=== PATIENT | female | born 1955 | race Caucasian/White ===

== ENCOUNTER 2018-06-28 11:21 | Inpatient (IN) | payer BC ==
[2018-06-28] MEDS ORDERED: Thiamine IV 100 MG, Folic Acid IV* 1 MG, Multiple Vitamin IV ADULT* 10 ML in NS 0.9% 10... IV ONE (11:33)
[2018-06-28] MEDS ORDERED: Ondansetron INJ* 2 MG/ML VIAL IV ONE (11:33)
--- NOTE | 2018-06-28 11:48 | ED ---
Substance Abuse/Use - HPI Summary HPI Summary: This pt is a 62 y/o female presenting to [facility] via EMS for not feeling well after drinking alcohol 2 days ago. Pt states she was binge drinking 2 days ago, notes she drank beers that were double strength. She denies drinking alcohol every day. Today she reports nausea, vomiting, abd pain, lightheadedness, chest pain, palpitations, headache, some confusion. She notes she used to be an alcoholic, last drink was 2 weeks ago prior to drinking 2 days ago. Denies tobacco use. Pt reports she must have hx of liver cirrhosis, although she is not sure. She sees her doctor every year. - History Of Current Complaint Stated Complaint: ETOH Time Seen by Provider: 06/28/18 11:27 Hx Obtained From: Patient Onset/Duration of Drug/ETOH Abuse: Days Ingestion History: Type/Name Of Drug - Alcohol, Amount Ingested - binge use Overdose Characteristics: Oral Timing Of Abuse: Binge Use Severity Currently: Moderate Character: Stuporous Aggravating Factor(s): Nothing Alleviating Factor(s): Nothing Associated Signs And Symptoms: Confused, Palpitations, Chest Pain, Nausea, Vomiting, Intentional Ingestion, Other: - POS: abd pain, headache, lightheadedness - Allergies/Home Medications Allergies/Adverse Reactions: Allergies Allergy/AdvReac Type Severity Reaction Status Date / Time No Known Allergies Allergy Verified 06/28/18 11:37 Home Medications: Home Medications Zolpidem TAB* [Ambien TAB*] 5 mg PO BEDTIME PRN 06/28/18 [History Confirmed ] PMH/Surg Hx/FS Hx/Imm Hx Musculoskeletal History: Denies: Hx Rheumatoid Arthritis, Hx Osteoporosis Psychiatric History: Reports: Hx Substance Abuse - Cancer History Hx Chemotherapy: Yes - BREAST Hx Radiation Therapy: Yes - BREAST Infectious Disease History: No Infectious Disease History: Denies: Traveled Outside the [place] in Last 30 Days - Family History Family History: brothers and sisters with venous stasis disease. - Social History Substance Use Type: Reports: None Smoking Status (MU): Never Smoked Tobacco Review of Systems Negative: Fever, Chills Positive: Chest Pain Positive: Shortness Of Breath Positive: Abdominal Pain, Vomiting, Nausea Neurological: Other - POS: confusion Positive: Headache All Other Systems Reviewed And Are Negative: Yes Physical Exam - Summary Physical Exam Summary: VITAL SIGNS: Reviewed. GENERAL: Patient is a well-developed and nourished female who is lying comfortable in the stretcher. Patient is not in any acute respiratory distress. I can smell alcohol in her breath. HEAD AND FACE: No signs of trauma. No ecchymosis, hematomas or skull depressions. No sinus tenderness. EYES: PERRLA, EOMI x 2, No injected conjunctiva, no nystagmus. EARS: Hearing grossly intact. Ear canals and tympanic membranes are within normal limits. MOUTH: Oropharynx within normal limits. NECK: Supple, trachea is midline, no adenopathy, no JVD, no carotid bruit, no c- spine tenderness, neck with full ROM. CHEST: Symmetric, no tenderness at palpation LUNGS: Clear to auscultation bilaterally. No wheezing or crackles. CVS: Regular rate and rhythm, S1 and S2 present, no murmurs or gallops appreciated. ABDOMEN: Soft, non-tender. No signs of distention. No rebound, no guarding, and no masses palpated. Bowel sounds are normal. EXTREMITIES: FROM in all major joints, no edema, no cyanosis or clubbing. NEURO: Alert and oriented x 3. No acute neurological deficits. Speech is normal and follows commands. Pt is slow to respond. SKIN: Dry and warm. Some jaundice. Triage Information Reviewed: Yes Vital Signs On Initial Exam: Initial Vitals Temp Pulse Resp BP Pulse Ox 97.7 F 82 16 122/99 99 06/28/18 11:33 06/28/18 11:33 06/28/18 11:33 06/28/18 11:33 06/28/18 11:33 Vital Signs Reviewed: Yes Diagnostics - Vital Signs Vital Signs Temp Pulse Resp BP Pulse Ox 06/28/18 11:33 97.7 F 82 16 122/99 99 - Laboratory Result Diagrams: 06/28/18 12:01 06/29/18 05:51 Lab Statement: Any lab studies that have been ordered have been reviewed, and results considered in the medical decision making process. - Radiology Chest XR Radiology Interpretation Completed By: Radiologist Summary of Radiographic Findings: IMPRESSION: Mild pulmonary vascular congestion and interstitial edema. Dr. Arias has reviewed this report. - CT Brain CT CT Interpretation Completed By: Radiologist Summary of CT Findings: IMPRESSION: No evidence for acute intracranial abnormality. Dr. Arias has reviewed this report. - EKG 11:41 Cardiac Rate: NL - at 90 bpm EKG Rhythm: Sinus Rhythm Summary of EKG Findings: No ST elevations. Normal axis. Re-Evaluation - Re-Evaluation First Eval Re-Evaluation Time: 12:05 Change: Worse Comment: Pt had an approx 1 minute seizure. She was given 2 mg of Ativan. Course/Dx - Course Assessment/Plan: This pt is a 62 y/o female presenting to [facility] via EMS for not feeling well after drinking alcohol 2 days ago. Pt states she drank beers 2 days ago that were double strength. She notes she does not drink alcohol every day. Today she reports nausea, vomiting, abd pain, lightheadedness, chest pain, palpitations, headache, some confusion. She notes she used to be an alcoholic, last drink was 2 weeks ago. Denies tobacco use. Pt reports she must have hx of liver cirrhosis, although she is not sure. She sees her doctor every year. In the ER course the patient was placed in a director of cardiac rehabilitation, seizure precautions were placed, the patient was started on IV fluids, I also ordered banana bag since the patients symptoms began alcoholic. At approximately 12 PM the patient developed a clonic tonic seizure that lasted for approximately a minute. We did some suction and the patient was given Ativan and we also placed the patient on oxygen. At this time the patient is resting comfortably. We will therefore wait for the blood test results to return. Blood work without any significant abnormality except for sodium of 109, potassium 3.4, chloride 77, carbon dioxide 19 and anion gap is 13. Glucose 119, magnesium 1.4 , total bili is 1.3. Head CT impression: No evidence for acute intracranial abnormality. In the ED course the patient was given another dose of Ativan since the patient was not laying still before the head CT. The patient was also started on magnesium and potassium IV. The sodium level is 109 and the patient is symptomatic with a seizure and altered mental status therefore the patient was started on hypertonic saline 3% about 25 cc/h. Dr. Richmond, synthetic soil blocks pulper, agrees with the infusion rate and the hypertonic saline. She also accepted the patient for admission to his services to the ICU for further workup and management. The patient is critical however she is stable at this time. The patient is maintaining her airway therefore no need for intubation at this time. - Diagnoses Differential Diagnosis/HQI/PQRI: Positive: Alcohol Withdrawal, Delirium Tremens Provider Diagnoses: Hyponatremia, Seizure, Alcohol abuse, Hypomagnesemia, Hypokalemia - Physician Notifications Discussed Care Of Patient With: Jesus Manuel Richmond - synthetic soil blocks pulper Time Discussed With Above Provider: 12:45 Instructed by Provider To: Admit As Inpatient Discharge - Sign-Out/Discharge Documenting (check all that apply): Patient Departure - Admit to ICU All imaging exams completed and their final reports reviewed: Yes - Discharge Plan Condition: Stable Disposition: ADMITTED TO [facility] - Billing Disposition and Condition Condition: STABLE Disposition: Admitted to [facility] - Attestation Statements Document Initiated by Que: Yes Documenting Scribe: Sheyla Mclean Provider For Whom Que is Documenting (Include Credential): Jone Arias MD Scribe Attestation: Sheyla Ramos scribed for Jone Arias MD on 06/29/18 at 0717. Scribe Documentation Reviewed: Yes Provider Attestation: The documentation as recorded by the Sheyla mcmillan accurately reflects the service I personally performed and the decisions made by Jone morgan MD Status of Scribe Document: Viewed
[2018-06-28] MEDS ORDERED: LORazepam INJ* 2 MG/ML 1 ML VIAL IV PUSH ONE ×2 (12:05→12:50)
[2018-06-28] MEDS ORDERED: LORazepam INJ* 2 MG/ML 1 ML VIAL ONE ×3 (12:05→13:49)
[2018-06-28 12:26] LABS: ABS Basophils 0 10^3/ul (0-0.2); ABS Eosinophils 0 10^3/ul (0-0.6); ABS Lymphocytes 0.6 10^3/ul (1.0-4.8); ABS Monocytes 0.4 10^3/ul (0-0.8); ABS Neutrophils 5.9 10^3/ul (1.5-7.7); ABS Nucleated RBC 0 10^3/ul; Eosinophil % 0.1 %; Hematocrit 35 % (35-47); Hemoglobin 12.3 g/dl (12.0-16.0); Lymphocyte % 8.5 %; Mean Corpuscular HGB Conc 35 g/dl (31-36); Mean Corpuscular Hemoglobin 31 pg (27-31); Mean Corpuscular Volume 87 fL (80-97); Mean Platelet Volume 8.5 fL (7.4-10.4); Nucleated Red Blood Cells % 0; Platelet Count 247 10^3/ul (150-450); Red Blood Count 3.99 10^6/ul (4.00-5.40); Red Cell Distribution Width 13 % (10.5-15)
[2018-06-28] MEDS ORDERED: NS 0.9% 1000 ML** 1,000 ML ONE (12:32)
[2018-06-28] MEDS ORDERED: Folic Acid IV* 50 MG/10 ML VIAL ONE (12:32)
[2018-06-28] MEDS ORDERED: Multiple Vitamin IV ADULT* 10 ML VIAL ONE (12:32)
[2018-06-28 12:37] LABS: Activated Partial Thrombo Time 26.8 seconds (26.0-36.3); INR 0.88 (0.77-1.02)
[2018-06-28 12:41] LABS: ALT 21 U/L (7-52); AST 29 U/L (13-39); Albumin 4.3 g/dL (3.2-5.2); Albumin/Globulin Ratio 2.2 (1-3); Alkaline Phosphatase 54 U/L (34-104); Amylase 35 U/L (29-103); Blood Urea Nitrogen 9 mg/dL (6-24); C Reactive Protein 4.28 mg/L (<8.01); CO2 Carbon Dioxide 19 mmol/L (22-32); Calcium 8.8 mg/dL (8.6-10.3); Chloride 77 mmol/L (101-111); Creatine Kinase 218 U/L (10-223); EGFR African American 141.4 (>60); EGFR Non-African American 116.9 (>60); Glucose 119 mg/dL (70-100); Magnesium 1.4 mg/dL (1.9-2.7); Potassium 3.4 mmol/L (3.5-5.0); Total Protein 6.3 g/dL (6.4-8.9)
[2018-06-28 12:44] LABS: Anion Gap 13 mmol/L (2-11); Sodium 109 mmol/L (135-145)
[2018-06-28] MEDS ORDERED: Magnesium Sulfate 2 GM IV* 2 GM/50 ML BAG IVPB ONE (12:44)
[2018-06-28] MEDS ORDERED: Sodium Chloride 3% HYPERTONIC* 500 ML IVPB ONE (12:47)
[2018-06-28 12:57] LABS: Acetaminophen < 15 mcg/mL; Alcohol < 10 mg/dL (<10)
[2018-06-28] MEDS ORDERED: NS 0.9% IV ONE ×3 (13:04→13:05)
[2018-06-28] MEDS ORDERED: SODIUM CHLORIDE 23.4% IV ONE ×3 (13:04→13:05)
[2018-06-28] MEDS ORDERED: Sodium Chloride 3% HYPERTONIC* 500 ML IV ONE ×2 (13:07)
[2018-06-28 13:42] LABS: BNP 390 pg/mL (<=100)
[2018-06-28] MEDS: KCL 10 MEQ/50 ML IVPREMIX* 10 MEQ/50 ML BAG IV SCH ×2 (14:45→16:25)
[2018-06-28] MEDS ORDERED: NS 0.9% 1000 ML** 1,000 ML IV SCH (18:04)
[2018-06-28] MEDS ORDERED: LORazepam INJ* 2 MG/ML 1 ML VIAL IV PUSH PRN (19:33)
--- NOTE | 2018-06-28 19:58 | HP ---
History of Present Illness - History of Present Illness Reason for Visit: symptomatic hyponatremia History of Present Illness: Patient is post-ictal. Patient partner was in the room earlier but not available during the evaluation History was obtained from patient's partner and chart-review 62 y/o female with history of chronic alcohol use presenting to [facility] via EMS for not feeling well after an alcohol binge 2 days ago. While in the ED, patient suddenly developed a clonic tonic seizure that lasted for approximately a minute. This episode was treated with ativan with resolution of seizure. Patient was noted to have a Na+ of 109 and started on 3% Saline that was discontinued when the sodium was 114. She maintained her airway and hemodynamics. Further workup including CTH was unrevealing. Patient now responds to her her name but is withdrawn and won't answer my questions - Past Medical History Hepatobiliary: Cirrhosis Review of Systems - Review of Systems Constitutional: Positive: Chills, Weakness, Malaise. Negative: Fever, Sweats Respiratory: Negative: Shortness of Breath Cardiovascular: Negative: Chest Pain, Palpitations Skin: Negative: Rash, Lesions Neurological: Positive: Weakness, Numbness, Incoordination, Confusion, Seizures - Medications/Allergies Allergies/Adverse Reactions: Allergies Allergy/AdvReac Type Severity Reaction Status Date / Time No Known Allergies Allergy Verified 06/28/18 11:37 Medications: Current Medications Sodium Chloride (Ns 0.9% 1000 Ml*) 1,000 mls @ 100 mls/hr IV PER RATE WYATT Dexmedetomidine HCl 400 mcg/ (Sodium Chloride) 100 mls @ 2.71 mls/hr IVPB Q24H WYATT; Protocol Last Admin: 06/28/18 19:48 Dose: 2.71 mls/hr Lorazepam (Ativan Inj*) 0 mg IV PUSH Q2H PRN; Protocol PRN Reason: ANXIETY Exam - Exam Vital Signs: Vital Signs (72 hours) 06/28/18 06/28/18 06/28/18 11:33 11:36 11:52 Temperature 97.7 F Pulse Rate 82 Respiratory 16 11 29 Rate Blood Pressure 122/99 112/81 (mmHg) O2 Sat by Pulse 99 Oximetry 06/28/18 06/28/18 06/28/18 12:00 12:17 12:21 Temperature Pulse Rate 81 90 94 Respiratory 29 22 20 Rate Blood Pressure 131/83 128/81 (mmHg) O2 Sat by Pulse 99 96 95 Oximetry 06/28/18 06/28/18 06/28/18 12:30 12:50 13:00 Temperature Pulse Rate Respiratory 18 24 19 Rate Blood Pressure (mmHg) O2 Sat by Pulse Oximetry 06/28/18 06/28/18 06/28/18 13:56 14:01 14:03 Temperature 98.1 F Pulse Rate 90 92 Respiratory 16 19 21 Rate Blood Pressure 119/78 213/185 (mmHg) O2 Sat by Pulse 100 97 Oximetry 06/28/18 06/28/18 06/28/18 14:05 14:16 14:27 Temperature 98.6 F Pulse Rate 91 80 80 Respiratory 17 18 17 Rate Blood Pressure 106/60 106/60 113/68 (mmHg) O2 Sat by Pulse 99 99 98 Oximetry 06/28/18 06/28/18 06/28/18 14:30 14:45 15:00 Temperature Pulse Rate 77 74 105 Respiratory 17 17 15 Rate Blood Pressure 96/65 100/67 (mmHg) O2 Sat by Pulse 99 100 100 Oximetry 06/28/18 06/28/18 06/28/18 15:01 15:15 15:31 Temperature Pulse Rate 102 101 86 Respiratory 24 29 20 Rate Blood Pressure 99/80 103/87 119/78 (mmHg) O2 Sat by Pulse 100 100 100 Oximetry 06/28/18 06/28/18 06/28/18 15:38 15:45 16:00 Temperature 98 F Pulse Rate 73 87 Respiratory 16 21 Rate Blood Pressure 108/59 103/79 (mmHg) O2 Sat by Pulse 99 98 Oximetry 06/28/18 06/28/18 06/28/18 16:16 17:00 17:01 Temperature Pulse Rate 104 92 108 Respiratory 16 27 25 Rate Blood Pressure 116/90 118/100 (mmHg) O2 Sat by Pulse 99 98 99 Oximetry 06/28/18 06/28/18 06/28/18 18:00 19:00 19:01 Temperature Pulse Rate 73 75 80 Respiratory 15 21 24 Rate Blood Pressure 115/70 126/70 (mmHg) O2 Sat by Pulse 99 98 97 Oximetry 06/28/18 19:07 Temperature Pulse Rate Respiratory 22 Rate Blood Pressure (mmHg) O2 Sat by Pulse Oximetry General: Alert, No acute distress HEENT: Atraumatic, Mucous membr. moist/pink Lungs: Clear to auscultation Cardiovascular: Regular rate, Normal S1, Normal S2 Abdomen: Normal bowel sounds, Soft, No tenderness Extremities: No clubbing, No cyanosis, No edema Skin: No rashes, No breakdown Neurological: Other - non focal Assessment/Plan - Assessment/Plan Assessment: 62 F with hx/o chronic alcohol abuse admitted to the ICU for symptomatic hyponatremia with acute seizure Symptomatic hyponatremia Acute new seizure due to ETOH withdrawal vs acute hyponatremia ETOH abuse Plan: -seizure and aspiration precautions - CIWA protocol - banana bag -Na+ q 3hours. Goal to increase no more than 120-122 by 6pm tomorrow. Discontinued HS(3%) at 1600. Repeat Na 4p and 6p stable at 114. Currently on NS 50cc/h. If Na+ >1Meq by 9 pm will hold NS vs start attempts to lower Na+ -replace electrolytes per protocol- Goal K+ >3.5, Mg >2 Code status full prognosis: guarded Critical care time: 65 mins
[2018-06-28] MEDS ORDERED: Dexmedetomidine* 400 MCG in NS 0.9% 100 ML* 96 ML IVPB SCH (20:00)
[2018-06-28] MEDS: Heparin VIAL(*) 5000 UNITS/ML VIAL (FIVE THOUSAND) SUBCUT SCH (20:58)
[2018-06-29] MEDS ORDERED: Sodium Chloride 3% HYPERTONIC* 500 ML IVPB ONE (01:00)
[2018-06-29] MEDS ORDERED: NS 0.9% 1000 ML** 1,000 ML IV SCH (03:00)
[2018-06-29] MEDS: Heparin VIAL(*) 5000 UNITS/ML VIAL (FIVE THOUSAND) SUBCUT SCH ×3 (05:44→21:30)
[2018-06-29 06:14] LABS: Calcium 7.6 mg/dL (8.6-10.3); EGFR African American 195.7 (>60); EGFR Non-African American 161.7 (>60); Potassium 3.2 mmol/L (3.5-5.0)
[2018-06-29] MEDS ORDERED: Acetaminophen TAB* 325 MG ONE (06:23)
[2018-06-29] MEDS: Acetaminophen TAB* 325 MG PO PRN ×2 (06:25→18:15)
[2018-06-29] MEDS ORDERED: KCL 10 MEQ/50 ML IVPREMIX* 10 MEQ/50 ML BAG IV ONE (08:34)
[2018-06-29] MEDS ORDERED: Ibuprofen TAB* 600 MG PO ONE (08:42)
--- NOTE | 2018-06-29 08:53 | PN ---
Date of Service: 06/29/18 Critical Care Services: 62F with h/o etoh abuse presents with encephalopathy 2/2 seizure from hyponatremia. 06/29: discussed with patient. she states she doesnt drink. Vital Signs: Temp Pulse Resp BP SpO2 FiO2 99 F 75 16 96/53 95 06/29/18 07:21 06/29/18 07:30 06/29/18 08:00 06/29/18 07:30 06/29/18 07:30 Physical Exam: Gen - nad heent - ncat, eomi, perrl neck - no jvd cv - s1/s2, no murmur lungs - cta, no wheeze abd - soft, nt ext - no cce neuro - non-focal Fluid Balance (Past 24 Hours): I= O= Net Intake & Output 06/27/18 06/28/18 06/29/18 06/30/18 06:59 06:59 06:59 06:59 Intake Total 1871.9 40 Output Total 1600 Balance 271.9 40 Weight 55.471 kg Intake: IV Fluids 1566 Banana Bag 980 KCl 100 Mag 50 NS (0.9%) 436 IVPB 296 Medicated IV 9.9 CC - Dexmedetomidine/ 9.9 Precedex Oral 40 Output: Urine 1600 Other: Estimated Void Medium # Voids 1 Labs: Laboratory Results - last 24 hr 06/28/18 06/28/18 06/28/18 12:01 12:01 12:01 WBC 7.0 RBC 3.99 L Hgb 12.3 Hct 35 MCV 87 MCH 31 MCHC 35 RDW 13 Plt Count 247 MPV 8.5 Neut % (Auto) 85.2 Lymph % (Auto) 8.5 [place] % (Auto) 6.1 Eos % (Auto) 0.1 Baso % (Auto) 0.1 Absolute Neuts (auto) 5.9 Absolute Lymphs (auto) 0.6 L Absolute Monos (auto) 0.4 Absolute Eos (auto) 0 Absolute Basos (auto) 0 Absolute Nucleated RBC 0 Nucleated RBC % 0 INR (Anticoag Therapy) 0.88 APTT 26.8 Sodium 109 L* Potassium 3.4 L Chloride 77 L Carbon Dioxide 19 L Anion Gap 13 H BUN 9 Creatinine 0.53 Est GFR ( Amer) 141.4 Est GFR (Non-Af Amer) 116.9 BUN/Creatinine Ratio 17.0 Glucose 119 H Lactic Acid Calcium 8.8 Magnesium 1.4 L Total Bilirubin 1.30 H AST 29 ALT 21 Alkaline Phosphatase 54 Ammonia Total Creatine Kinase 218 C-Reactive Protein 4.28 B-Natriuretic Peptide Total Protein 6.3 L Albumin 4.3 Globulin 2.0 Albumin/Globulin Ratio 2.2 Amylase 35 Lipase < 10 L Acetaminophen Serum Alcohol Blood Type Antibody Screen 06/28/18 06/28/18 06/28/18 12:01 12:01 12:01 WBC RBC Hgb Hct MCV MCH MCHC RDW Plt Count MPV Neut % (Auto) Lymph % (Auto) [place] % (Auto) Eos % (Auto) Baso % (Auto) Absolute Neuts (auto) Absolute Lymphs (auto) Absolute Monos (auto) Absolute Eos (auto) Absolute Basos (auto) Absolute Nucleated RBC Nucleated RBC % INR (Anticoag Therapy) APTT Sodium Potassium Chloride Carbon Dioxide Anion Gap BUN Creatinine Est GFR ( Amer) Est GFR (Non-Af Amer) BUN/Creatinine Ratio Glucose Lactic Acid 2.0 Calcium Magnesium Total Bilirubin AST ALT Alkaline Phosphatase Ammonia 64 H Total Creatine Kinase C-Reactive Protein B-Natriuretic Peptide 390 H Total Protein Albumin Globulin Albumin/Globulin Ratio Amylase Lipase Acetaminophen Serum Alcohol Blood Type A Positive Antibody Screen Negative 06/28/18 06/28/18 06/28/18 12:01 13:10 14:24 WBC RBC Hgb Hct MCV MCH MCHC RDW Plt Count MPV Neut % (Auto) Lymph % (Auto) [place] % (Auto) Eos % (Auto) Baso % (Auto) Absolute Neuts (auto) Absolute Lymphs (auto) Absolute Monos (auto) Absolute Eos (auto) Absolute Basos (auto) Absolute Nucleated RBC Nucleated RBC % INR (Anticoag Therapy) APTT Sodium 113 L* 109 L* Potassium Chloride Carbon Dioxide Anion Gap BUN Creatinine Est GFR ( Amer) Est GFR (Non-Af Amer) BUN/Creatinine Ratio Glucose Lactic Acid Calcium Magnesium Total Bilirubin AST ALT Alkaline Phosphatase Ammonia Total Creatine Kinase C-Reactive Protein B-Natriuretic Peptide Total Protein Albumin Globulin Albumin/Globulin Ratio Amylase Lipase Acetaminophen < 15 Serum Alcohol < 10 Blood Type Antibody Screen 06/28/18 06/28/18 06/28/18 16:15 17:41 18:02 WBC RBC Hgb Hct MCV MCH MCHC RDW Plt Count MPV Neut % (Auto) Lymph % (Auto) [place] % (Auto) Eos % (Auto) Baso % (Auto) Absolute Neuts (auto) Absolute Lymphs (auto) Absolute Monos (auto) Absolute Eos (auto) Absolute Basos (auto) Absolute Nucleated RBC Nucleated RBC % INR (Anticoag Therapy) APTT Sodium 114 L* 114 L* Potassium Chloride Carbon Dioxide Anion Gap BUN Creatinine Est GFR ( Amer) Est GFR (Non-Af Amer) BUN/Creatinine Ratio Glucose Lactic Acid 1.4 Calcium Magnesium Total Bilirubin AST ALT Alkaline Phosphatase Ammonia Total Creatine Kinase C-Reactive Protein B-Natriuretic Peptide Total Protein Albumin Globulin Albumin/Globulin Ratio Amylase Lipase Acetaminophen Serum Alcohol Blood Type Antibody Screen 06/28/18 06/28/18 06/29/18 20:27 23:18 02:19 WBC RBC Hgb Hct MCV MCH MCHC RDW Plt Count MPV Neut % (Auto) Lymph % (Auto) [place] % (Auto) Eos % (Auto) Baso % (Auto) Absolute Neuts (auto) Absolute Lymphs (auto) Absolute Monos (auto) Absolute Eos (auto) Absolute Basos (auto) Absolute Nucleated RBC Nucleated RBC % INR (Anticoag Therapy) APTT Sodium 113 L* 111 L* 114 L* Potassium Chloride Carbon Dioxide Anion Gap BUN Creatinine Est GFR ( Amer) Est GFR (Non-Af Amer) BUN/Creatinine Ratio Glucose Lactic Acid Calcium Magnesium Total Bilirubin AST ALT Alkaline Phosphatase Ammonia Total Creatine Kinase C-Reactive Protein B-Natriuretic Peptide Total Protein Albumin Globulin Albumin/Globulin Ratio Amylase Lipase Acetaminophen Serum Alcohol Blood Type Antibody Screen 06/29/18 05:51 WBC RBC Hgb Hct MCV MCH MCHC RDW Plt Count MPV Neut % (Auto) Lymph % (Auto) [place] % (Auto) Eos % (Auto) Baso % (Auto) Absolute Neuts (auto) Absolute Lymphs (auto) Absolute Monos (auto) Absolute Eos (auto) Absolute Basos (auto) Absolute Nucleated RBC Nucleated RBC % INR (Anticoag Therapy) APTT Sodium 115 L* Potassium 3.2 L Chloride 87 L Carbon Dioxide 21 L Anion Gap 7 BUN 6 Creatinine 0.40 L Est GFR ( Amer) 195.7 Est GFR (Non-Af Amer) 161.7 BUN/Creatinine Ratio 15.0 Glucose 91 Lactic Acid Calcium 7.6 L Magnesium Total Bilirubin AST ALT Alkaline Phosphatase Ammonia Total Creatine Kinase C-Reactive Protein B-Natriuretic Peptide Total Protein Albumin Globulin Albumin/Globulin Ratio Amylase Lipase Acetaminophen Serum Alcohol Blood Type Antibody Screen Studies: CXR 06/28 IMPRESSION: #. Mild pulmonary vascular congestion and interstitial edema. CT head 06/28 IMPRESSION: NO EVIDENCE FOR ACUTE INTRACRANIAL ABNORMALITY. Impression: 62F with etoh abuse? presents with ecephalopathy 2/2 seizure/hyponatremia Plan: Neuro - encephalopathy/etoh abuse? - 2/2 seizure - improved - ativan prn withdrawal - fall/seizure precautions - pt/sw eval CV - mild elevation in bnp - no evidence of chf - tte as outpatient pulm - oxygenating well on room air id - no evidence of infection gi - advance diet as tolerated - repeat lft/ammonia at noon - thiamine/folate/mvi renal - hyponatremia - 2/2 beer potomania? - check urine lytes - iv hydration - serial bmp - replete k/phos heme - monitor cbc endo - check tsh/cortisol lines - place mid line ppx - gi/dvt full code Critical Care Time: 55 mins
[2018-06-29] MEDS ORDERED: Thiamine IV 100 MG, Folic Acid IV* 1 MG, Multiple Vitamin IV ADULT* 10 ML in NS 0.9% 10... IV ONE (09:00)
[2018-06-29] MEDS ORDERED: LORazepam INJ* 2 MG/ML 1 ML VIAL IV PUSH SCH (09:00)
[2018-06-29] MEDS: Potassium Chlor TAB* 20 MEQ TAB.ER PO SCH ×3 (09:52→18:14)
[2018-06-29] MEDS: Multivitamins/Minerals TAB PO SCH (09:52)
[2018-06-29] MEDS: Thiamine TAB* 100 MG TAB PO SCH (09:53)
[2018-06-29] MEDS: Folic Acid TAB* 1 MG PO SCH (09:53)
[2018-06-29 13:27] LABS: Urine Appearance Clear; Urine Bilirubin Negative (Negative); Urine Blood Negative (Negative); Urine Color Straw; Urine Glucose Negative (Negative); Urine Ketones Negative (Negative); Urine Nitrite Negative (Negative); Urine Protein Negative (Negative); Urine Specific Gravity 1.002 (1.010-1.030); Urine Urobilinogen Negative (Negative)
[2018-06-29 14:15] LABS: Albumin 3.9 g/dL (3.2-5.2); Albumin/Globulin Ratio 2.1 (1-3); Calcium 8.4 mg/dL (8.6-10.3); EGFR African American 162.5 (>60); EGFR Non-African American 134.3 (>60); Globulin 1.9 g/dL (2-4); Indirect Bilirubin 0.7 mg/dL (0.3-1.0); Magnesium 1.8 mg/dL (1.9-2.7); Phosphorus 1.7 mg/dL (2.5-5.0); Total Bilirubin 0.8 mg/dL (0.2-1.0); Total Protein 5.8 g/dL (6.4-8.9)
[2018-06-29 14:27] LABS: TSH (Thyroid Stimulating Horm) 2.13 mcIU/mL (0.34-5.60)
[2018-06-29] MEDS ORDERED: Sodium Phosphate INJ* 15 MMOLE in NS 0.9% 250 ML* 250 ML IVPB ONE (14:43)
[2018-06-29] MEDS ORDERED: Magnesium Sulfate 1 GM IV* 1 GM/100 ML BAG IV ONE (14:43)
[2018-06-29 18:29] LABS: BUN/Creatinine Ratio 12.7 (8-20); Calcium 8.7 mg/dL (8.6-10.3); EGFR African American 135.5 (>60); Magnesium 2.4 mg/dL (1.9-2.7); Phosphorus 1.8 mg/dL (2.5-5.0); Potassium 3.9 mmol/L (3.5-5.0)
[2018-06-30 00:37] LABS: BUN/Creatinine Ratio 23.2 (8-20); Calcium 8.4 mg/dL (8.6-10.3); EGFR African American 132.7 (>60); EGFR Non-African American 109.7 (>60); Magnesium 2.2 mg/dL (1.9-2.7); Phosphorus 1.9 mg/dL (2.5-5.0); Potassium 4.3 mmol/L (3.5-5.0)
[2018-06-30 00:48] LABS: Urine Creatinine Concentration 7.73 mg/dL
[2018-06-30] MEDS: Heparin VIAL(*) 5000 UNITS/ML VIAL (FIVE THOUSAND) SUBCUT SCH (06:36)
[2018-06-30 06:53] LABS: ABS Basophils 0 10^3/ul (0-0.2); ABS Eosinophils 0 10^3/ul (0-0.6); ABS Monocytes 0.6 10^3/ul (0-0.8); ABS Neutrophils 3.6 10^3/ul (1.5-7.7); ABS Nucleated RBC 0 10^3/ul; Eosinophil % 0.6 %; Hematocrit 31 % (35-47); Hemoglobin 10.9 g/dl (12.0-16.0); Lymphocyte % 19.1 %; Mean Corpuscular HGB Conc 35 g/dl (31-36); Mean Corpuscular Hemoglobin 31 pg (27-31); Mean Corpuscular Volume 89 fL (80-97); Mean Platelet Volume 8.6 fL (7.4-10.4); Nucleated Red Blood Cells % 0.1; Platelet Count 211 10^3/ul (150-450); Red Blood Count 3.55 10^6/ul (4.00-5.40); Red Cell Distribution Width 13 % (10.5-15); White Blood Count 5.2 10^3/ul (3.5-10.8)
[2018-06-30 07:08] LABS: BUN/Creatinine Ratio 16.7 (8-20); Calcium 8.6 mg/dL (8.6-10.3); EGFR African American 158.6 (>60); Magnesium 2.1 mg/dL (1.9-2.7); Potassium 3.9 mmol/L (3.5-5.0)
[2018-06-30] MEDS: Folic Acid TAB* 1 MG PO SCH (08:14)
[2018-06-30] MEDS: Thiamine TAB* 100 MG TAB PO SCH (08:14)
[2018-06-30] MEDS: Multivitamins/Minerals TAB PO SCH (08:14)
[2018-06-30 14:50] VITALS: BP 112/60
--- NOTE | 2018-06-30 23:25 | DS ---
CC: Dr. Tiarra Mo * DISCHARGE SUMMARY: DATE OF ADMISSION: DATE OF DISCHARGE: 06/30/18 HOSPITAL COURSE: This 62-year-old woman states she called the ambulance. She was not feeling well. She primarily gave different histories to different people. She told me she had 3 beers. Later she said they were very large beers or at least one of them was a very large beer. In the emergency room, the history from the patient's partner was that the patient had been on an alcohol binge 2 days before and has chronic alcohol use. The patient does admit to having used alcohol heavily 2 years ago, but had difficulty with remembering which type of alcoholic beverage she used. She had a tonic-clonic seizure in the emergency room. She was given 3% saline which was discontinued when her sodium went from 109 to 114. She was treated further in the intensive care unit. She did quite well without any further seizures. I think she is completely at her baseline. On the day of discharge, her sodium was 135. Her hematocrit dropped a little bit, not surprising. It was 31 on the day of discharge. FINAL DIAGNOSES: 1. Hyponatremia with seizure. 2. Chronic alcoholism. 3. Anemia. DISCHARGE MEDICATIONS: None. DISCHARGE DISPOSITION: Home. DISCHARGE CONDITION: Improved. [id number]/[facility] #: [id number] MTDNannette
== END 2018-06-30 15:20 | disposition home or self-care (01) | DRG 425 ==
LOC: ED 11:21 → ICU 13:13 → MED 06-29 16:46
PROVIDERS: ADMIT Internal Medicine Pulmonary Disease; ATTEND Internal Medicine
DX: E87.1 Hypo-osmolality and hyponatremia (principal); G40.89 Other seizures; F10.239 Alcohol dependence with withdrawal, unspecified; Y90.9 Presence of alcohol in blood, level not specified; D64.9 Anemia, unspecified; E87.6 Hypokalemia; E83.42 Hypomagnesemia; K74.60 Unspecified cirrhosis of liver; Y90.4 Blood alcohol level of 80-99 mg/100 ml; Z85.3 Personal history of malignant neoplasm of breast; Z92.21 Personal history of antineoplastic chemotherapy; Z92.3 Personal history of irradiation
CPT/HCPCS: 36415; 70450; 71045; 80048; 80053; 80076; 80320; 80329; 81003; 82140; 82150; 82533; 82550; 82570; 83605; 83690; 83735; 83880; 83930; 83935; 84100; 84300; 84443; 85025; 85610; 85730; 86140; 86850; 86900; 86901; 87641; 93005; 99285; A9270-GY; G0480; J1644; J2060; J2405; J3411; J3475; J3480; J7131

== ENCOUNTER 2022-02-28 16:06 | Inpatient (IN) ==
[2022-02-28 17:54] LABS: ABS Lymphocytes 0.5 10^3/ul (1.0-4.8); ABS Monocytes 0.6 10^3/ul (0-0.8); ABS Neutrophils 7.7 10^3/ul (1.5-7.7); Eosinophil % 0.3 %; Hematocrit 37 % (35-47); Hemoglobin 12.7 g/dL (12.0-16.0); Lymphocyte % 5.9 %; Mean Corpuscular HGB Conc 34 g/dL (31-36); Mean Corpuscular Hemoglobin 30 pg (27-31); Mean Corpuscular Volume 88 fL (80-97); Mean Platelet Volume 7.4 fL (7.4-10.4); Platelet Count 299 10^3/uL (150-450); Red Blood Count 4.22 10^6 /uL (3.70-4.87); Red Cell Distribution Width 14 % (10-15); White Blood Count 8.8 10^3/uL (3.5-10.8)
[2022-02-28 18:39] LABS: Albumin 4.6 g/dL (3.2-5.2); Albumin/Globulin Ratio 2.1 (1-3); Calcium 9.6 mg/dL (8.6-10.3); Globulin 2.2 g/dL (2-4); Magnesium 1.9 mg/dL (1.9-2.7); Potassium 3.7 mmol/L (3.5-5.0); Total Bilirubin 0.9 mg/dL (0.2-1.0); Total Protein 6.8 g/dL (6.4-8.9); eGFR CKD-EPI 100.6 (>60)
[2022-02-28] MEDS ORDERED: NS 0.9% 500 ml BAG 500 ML IV ONE (19:02)
[2022-02-28 19:33] LABS: Osmolality Serum 237 mOsm/kg (275-295)
[2022-02-28] MEDS ORDERED: Ondansetron 4 mg VIAL 2 MG/ML 2 ml VIAL IV ONE (19:35)
[2022-02-28 20:37] LABS: Urine Chloride Concentration < 22 mmol/L; Urine Sodium Concentration < 18 mmol/L
[2022-02-28 20:45] LABS: Urine Creatinine Concentration 112.84 mg/dL
[2022-02-28 20:46] LABS: Urine Benzodiazepine Screen None Detected (None Detect); Urine Cannabinoids Screen None Detected (None Detect); Urine Opiates Screen None Detected (None Detect)
[2022-02-28 20:48] LABS: Urine Osmo 544 mOsm/kg (150-1150)
[2022-02-28 21:06] LABS: Urine Appearance Clear; Urine Bilirubin Negative (Negative); Urine Color Yellow; Urine Glucose Negative (Negative); Urine Ketones 3+ (80mg/dL) (Negative)
[2022-02-28 21:07] LABS: Urine Blood Negative (Negative); Urine Nitrite Negative (Negative); Urine Protein Negative (Negative); Urine Urobilinogen 0.2 (Negative) (Negative)
[2022-02-28 22:17] LABS: Calcium 8.8 mg/dL (8.6-10.3); Potassium 3.6 mmol/L (3.5-5.0); eGFR CKD-EPI 107.8 (>60)
[2022-02-28] MEDS: Enoxaparin 40 MG/0.4 ML SYR SUBCUT SCH (22:24)
[2022-02-28] MEDS ORDERED: NS 0.9% 500 ml BAG 500 ML IV SCH ×2 (23:00)
[2022-02-28] MEDS ORDERED: NS 0.9% 1000 ml BAG 1,000 ML IV SCH (23:55)
[2022-03-01] MEDS: Latanoprost 0.005% 2.5 ml BTL BOTH EYES SCH ×2 (01:44→20:49)
[2022-03-01 02:08] LABS: Calcium 8.8 mg/dL (8.6-10.3)
[2022-03-01 02:13] LABS: eGFR CKD-EPI 104.9 (>60)
[2022-03-01 02:14] LABS: Potassium 3.8 mmol/L (3.5-5.0)
[2022-03-01] MEDS ORDERED: NS 0.9% 1000 ml BAG 1,000 ML IV SCH (02:19)
[2022-03-01 06:18] LABS: Calcium 8.5 mg/dL (8.6-10.3); Potassium 3.7 mmol/L (3.5-5.0); eGFR CKD-EPI 107.8 (>60)
[2022-03-01] MEDS ORDERED: D5W 1/2 NS 1000 ml BAG 1,000 ML IV SCH (07:00)
[2022-03-01] MEDS ORDERED: Desmopressin Acetate 4 MCG/ML 1 ML SDV IV ONE (07:30)
[2022-03-01] MEDS ORDERED: Desmopressin Acetate 4 MCG/ML 1 ML SDV SUBCUT ONE ×2 (07:35→17:08)
[2022-03-01 12:11] LABS: Potassium 3.6 mmol/L (3.5-5.0); eGFR CKD-EPI 98.2 (>60)
[2022-03-01 16:24] LABS: Calcium 8.7 mg/dL (8.6-10.3); eGFR CKD-EPI 96.3 (>60)
[2022-03-01] MEDS: Enoxaparin 40 MG/0.4 ML SYR SUBCUT SCH (20:48)
[2022-03-01 21:26] LABS: Calcium 8.7 mg/dL (8.6-10.3); Potassium 3.9 mmol/L (3.5-5.0)
[2022-03-02 04:38] LABS: ABS Eosinophils 0.2 10^3/ul (0-0.6); ABS Lymphocytes 1.1 10^3/ul (1.0-4.8); ABS Monocytes 0.5 10^3/ul (0-0.8); Eosinophil % 4.1 %; Hematocrit 34 % (35-47); Hemoglobin 11.2 g/dL (12.0-16.0); Mean Corpuscular HGB Conc 33 g/dL (31-36); Mean Corpuscular Hemoglobin 29 pg (27-31); Mean Corpuscular Volume 88 fL (80-97); Mean Platelet Volume 7.7 fL (7.4-10.4); Platelet Count 274 10^3/uL (150-450); Red Blood Count 3.82 10^6 /uL (3.70-4.87); Red Cell Distribution Width 14 % (10-15); White Blood Count 4.8 10^3/uL (3.5-10.8)
[2022-03-02 05:00] LABS: Calcium 8.5 mg/dL (8.6-10.3); Potassium 3.8 mmol/L (3.5-5.0); eGFR CKD-EPI 104.4 (>60)
[2022-03-02 12:07] LABS: TSH Ultra Thyroid Stim Horm 0.95 mcIU/mL (0.34-5.60)
[2022-03-02 12:09] LABS: Free T4 1.08 ng/dL (0.61-1.12)
[2022-03-02 13:45] LABS: Calcium 9.1 mg/dL (8.6-10.3); Potassium 4.1 mmol/L (3.5-5.0)
[2022-03-02 13:51] LABS: eGFR CKD-EPI 104.4 (>60)
[2022-03-02 18:21] LABS: Calcium 9.4 mg/dL (8.6-10.3); Potassium 4.4 mmol/L (3.5-5.0); eGFR CKD-EPI 99.3 (>60)
[2022-03-02] MEDS: Latanoprost 0.005% 2.5 ml BTL BOTH EYES SCH (21:15)
[2022-03-02] MEDS: Enoxaparin 40 MG/0.4 ML SYR SUBCUT SCH (21:15)
[2022-03-03 04:41] LABS: ABS Eosinophils 0.3 10^3/ul (0-0.6); ABS Lymphocytes 0.9 10^3/ul (1.0-4.8); ABS Monocytes 0.4 10^3/ul (0-0.8); ABS Neutrophils 2.8 10^3/ul (1.5-7.7); Eosinophil % 5.8 %; Hematocrit 37 % (35-47); Hemoglobin 12.1 g/dL (12.0-16.0); Lymphocyte % 20.3 %; Mean Corpuscular HGB Conc 32 g/dL (31-36); Mean Corpuscular Hemoglobin 29 pg (27-31); Mean Corpuscular Volume 89 fL (80-97); Mean Platelet Volume 7.7 fL (7.4-10.4); Platelet Count 299 10^3/uL (150-450); Red Blood Count 4.17 10^6 /uL (3.70-4.87); Red Cell Distribution Width 14 % (10-15); White Blood Count 4.4 10^3/uL (3.5-10.8)
[2022-03-03 05:05] LABS: Calcium 9.1 mg/dL (8.6-10.3); Potassium 4.2 mmol/L (3.5-5.0); eGFR CKD-EPI 103.4 (>60)
[2022-03-03 08:41] VITALS: BP 139/93
== END 2022-03-03 11:00 | disposition home or self-care (01) | DRG 641 ==
LOC: ED 16:06 → EDHOLD 20:05 → ICU 22:19
PROVIDERS: ADMIT Internal Medicine; ATTEND Internal Medicine

== ENCOUNTER 2023-12-18 09:35 | Observation (INO) ==
[2023-12-18] MEDS ORDERED: Ondansetron 4 mg VIAL 2 MG/ML 2 ml VIAL ONE (10:24)
[2023-12-18] MEDS: Ondansetron 4 mg VIAL 2 MG/ML 2 ml VIAL IV ONE ×2 (10:40→10:50)
[2023-12-18 11:13] LABS: ABS Lymphocytes 0.6 10^3/uL (1.0-4.8); ABS Monocytes 0.3 10^3/uL (0.0-0.9); ABS Neutrophils 4.1 10^3/uL (1.5-7.6); Eosinophil % 0.7 %; Hematocrit 36.6 % (35-45); Hemoglobin 12.6 g/dL (11.5-14.3); Lymphocyte % 11.6 %; Mean Corpuscular Hgb Conc 34.4 g/dL (31-36); Mean Corpuscular Volume 90.3 fL (80-97); Mean Platelet Volume 8.2 fL (7.5-11.2); Platelet Count 286 10^3/uL (150-450); Red Blood Count 4.05 10^6/uL (3.63-4.92)
[2023-12-18 11:20] LABS: Urine Appearance Clear; Urine Bilirubin Negative (Negative); Urine Blood Negative (Negative); Urine Color Light-Yellow; Urine Glucose Negative (Negative); Urine Ketones 2+ (Negative); Urine Nitrite Negative (Negative); Urine Protein Negative (Negative); Urine Specific Gravity 1.018 (1.002-1.030); Urine Urobilinogen Negative (Negative); Urine pH 7.5 (5.0-8.0)
[2023-12-18] MEDS: NS 0.9% 1000 ml BAG 1,000 ML IV ONE (11:25)
[2023-12-18 11:48] LABS: Albumin 4.3 g/dL (3.2-5.2); Calcium 9.1 mg/dL (8.6-10.3); Creatinine, Serum 0.59 mg/dL (0.51-0.95); Globulin 2.1 g/dL (2-4); Magnesium 1.8 mg/dL (1.9-2.7); Potassium 4.2 mmol/L (3.5-5.0); Total Bilirubin 0.8 mg/dL (0.2-1.0); Total Protein 6.4 g/dL (6.4-8.9); eGFR CKD-EPI 98.1 (>60)
[2023-12-18 12:03] LABS: TSH Ultra Thyroid Stim Horm 0.59 mcIU/mL (0.34-5.60)
[2023-12-18] MEDS: Pantoprazole VIAL 40 MG VIAL IV SCH (15:07)
[2023-12-18] MEDS: Magnesium Sulfate 2 gm BAG 2 GM/50 ML BAG IVPB ONE (15:14)
[2023-12-18] MEDS: Enoxaparin 40 MG/0.4 ML SYR SUBCUT SCH (15:14)
[2023-12-18 16:24] LABS: Anion Gap 10 mmol/L (2-16); Blood Urea Nitrogen 9 mg/dL (6-24); CO2 Carbon Dioxide 21 mmol/L (22-32); Calcium 8.4 mg/dL (8.6-10.3); Chloride 92 mmol/L (101-111); Glucose 86 mg/dL (70-100); Sodium 123 mmol/L (135-145); eGFR CKD-EPI 102.1 (>60)
[2023-12-18 17:23] LABS: Urine Appearance Clear; Urine Bilirubin Negative (Negative); Urine Blood Negative (Negative); Urine Color Light-Yellow; Urine Glucose Negative (Negative); Urine Ketones 2+ (Negative); Urine Nitrite Negative (Negative); Urine Protein Negative (Negative); Urine Specific Gravity 1.013 (1.002-1.030); Urine Urobilinogen Negative (Negative)
[2023-12-18] MEDS: NS 0.9% 1000 ml BAG 1,000 ML IV SCH (18:05)
[2023-12-18 19:04] LABS: Alcohol, S < 13 mg/dL (<13)
[2023-12-18 20:13] LABS: Osmolality Serum 255 mOsm/kg (275-295)
[2023-12-18 21:26] LABS: Anion Gap 12 mmol/L (2-16); Blood Urea Nitrogen 9 mg/dL (6-24); CO2 Carbon Dioxide 16 mmol/L (22-32); Calcium 8.7 mg/dL (8.6-10.3); Chloride 90 mmol/L (101-111); Creatinine, Serum 0.47 mg/dL (0.51-0.95); Glucose 130 mg/dL (70-100); Sodium 118 mmol/L (135-145); eGFR CKD-EPI 103.6 (>60)
[2023-12-18] MEDS: Ondansetron 4 mg VIAL 2 MG/ML 2 ml VIAL IV PRN (22:24)
[2023-12-19] MEDS: Sodium Chloride 3% HYPERTONIC 150 ML IV ONE (01:32)
[2023-12-19 06:54] LABS: Calcium 8.5 mg/dL (8.6-10.3); Creatinine, Serum 0.57 mg/dL (0.51-0.95); Potassium 3.8 mmol/L (3.5-5.0); eGFR CKD-EPI 98.9 (>60)
[2023-12-19 07:05] LABS: Urine Osmo 199 mOsm/kg (150-1150)
[2023-12-20 05:43] VITALS: BP 110/68
[2023-12-20 05:43] LABS: Creatinine, Serum 0.66 mg/dL (0.51-0.95); Potassium 4.5 mmol/L (3.5-5.0); eGFR CKD-EPI 95.5 (>60)
== END 2023-12-20 12:58 | disposition home or self-care (01) ==
LOC: ED 09:35 → EDHOLD 09:35 → ICU 16:50 → MEDTELE 17:14 → ICU 12-19 01:25
PROVIDERS: ADMIT Family Medicine; ATTEND Family Medicine